=== PATIENT | male | born 1980 | race African-American/Black ===

== ENCOUNTER 2016-11-11 12:30 | Emergency (ER) | payer SELFPAY ==
[~2016-11-11] VITALS: Ht 185.4 cm; Wt 141.0 kg
[~2016-11-11 12:30] MED LIST: AMLO5TAB22 PO; ANTI2TAB PO; BENT20TA PO; COZA100T PO; FLUO40CA PO; GABA600T PO; HYDR-2768 PO; ISOS20TA38 PO; LORTA5 PO
[2016-11-11 12:32] VITALS: BP 195/103; PULSE 100; RESP 18; TEMP 98.4; O2SAT 97
[2016-11-11 12:33] VITALS: BP 195/103; PULSE 103; RESP 17; TEMP 98.1; O2SAT 98
[2016-11-11 12:42] VITALS: BP 193/94
[2016-11-11] MEDS ORDERED: SODIUM CHLORIDE 0.9% FLUSH 5 ML FLUSH IVF PRN (13:15)
--- NOTE | 2016-11-11 13:23 | PD ---
HPI Chief Complaint: Musculoskeletal Complaint Time Seen by Provider: 13:19 Travel History International Travel<30 days: No Contact w/Intl Traveler<30days: No Traveled to known affect area: No History of Present Illness HPI Patient is a 36-year-old male presenting to the emergency room for evaluation right knee pain. Patient states he woke up this morning with unable to ambulate. He has a history of surgery on that knee however he noticed a deformity to the lateral aspect that seems worse than it normally does. Additionally patient's blood pressure was elevated, he states that he is supposed to be on blood pressure medications but has not been for the last 2 months approximately. Patient was [facility] and was on medications then. He reports being on amlodipine, HCTZ, isosorbide, clonidine. His girlfriend endorses that he has had bad headaches lately and gets short of breath with exertion. He denies any peripheral edema or chest pain currently. Patient does endorse daily tobacco use as well as marijuana use. PFSH Past Medical History Depression: Yes Cardiovascular Problems: Yes (CARDIOMYOPATHY) Diminished Hearing: No Hypertension: Yes Musculoskeletal: Yes Immunizations Current: No Past Surgical History Other Surgery: Yes (knee surgery) Social History Alcohol Use: No Tobacco Use: Yes (5-6 cig/day) Substance Use: Yes (MARIJUANA ) Allergies-Medications (Allergen,Severity, Reaction): Coded Allergies: Lisinopril (Verified Allergy, Severe, SWELLING, 11/11/16) Reported Meds & Prescriptions Reported Meds & Active Scripts Active No Active Prescriptions or Reported Medications Review of Systems Except as stated in HPI: all other systems reviewed are Neg HENT: Positive: Headaches, No: Lightheadedness Cardiovascular: Positive: Dyspnea on exertion, No: Chest Pain or Discomfort, Tachycardia, Diaphoresis Respiratory: No: Cough, Shortness of Breath, Wheezing Musculoskeletal: Positive: Myalgias, Arthralgias, Pain Physical Exam Narrative GENERAL: Overweight, well-developed, alert gentleman. Resting comfortably in no acute distress. SKIN: Warm and dry. HEAD: Atraumatic. Normocephalic. EYES: Pupils equal and round. No scleral icterus. No injection or drainage. ENT: No nasal bleeding or discharge. Mucous membranes pink and moist. NECK: Trachea midline. No JVD. CARDIOVASCULAR: Regular rate and rhythm. No murmur appreciated. RESPIRATORY: No accessory muscle use. Clear to auscultation. Breath sounds equal bilaterally. GASTROINTESTINAL: Abdomen soft, non-tender, nondistended. Hepatic and splenic margins not palpable. MUSCULOSKELETAL: Lateral aspect of right knee has a bony prominence. No clubbing. No cyanosis. No edema. Positive pedal pulses. NEUROLOGICAL: Awake and alert. No obvious cranial nerve deficits. Motor grossly within normal limits. Normal speech. PSYCHIATRIC: Appropriate mood and affect; insight and judgment normal. Data Data Last Documented VS Vital Signs Date Time Temp Pulse Resp B/P Pulse Ox O2 Delivery O2 Flow Rate FiO2 11/11/16 15:35 97.8 76 17 150/77 99 11/11/16 14:59 Room Air Orders Knee, Complete (4vws) (11/11/16 ) Electrocardiogram (11/11/16 13:13) Ckmb (Isoenzyme) Profile (11/11/16 13:13) Complete Blood Count With Diff (11/11/16 13:13) Comprehensive Metabolic Panel (11/11/16 13:13) Magnesium (Mg) (11/11/16 13:13) Prothrombin Time / Inr (Pt) (11/11/16 13:13) Act Partial Throm Time (Ptt) (11/11/16 13:13) Troponin I (11/11/16 13:13) Chest, Single Ap (11/11/16 13:13) Sodium Chloride 0.9% Flush (Ns Flush) (11/11/16 13:15) CKMB (11/11/16 13:45) CKMB% (11/11/16 13:45) Acetamin-Hydrocod 325-5 Mg ([place] 5-325 (11/11/16 15:15) Labs Laboratory Tests Test 11/11/16 13:45 White Blood Count 8.8 TH/MM3 Red Blood Count 4.80 MIL/MM3 Hemoglobin 13.3 GM/DL Hematocrit 39.5 % Mean Corpuscular Volume 82.2 FL Mean Corpuscular Hemoglobin 27.7 PG Mean Corpuscular Hemoglobin 33.7 % Concent Red Cell Distribution Width 13.3 % Platelet Count 330 TH/MM3 Mean Platelet Volume 7.7 FL Neutrophils (%) (Auto) 67.3 % Lymphocytes (%) (Auto) 18.5 % Monocytes (%) (Auto) 11.5 % Eosinophils (%) (Auto) 2.3 % Basophils (%) (Auto) 0.4 % Neutrophils # (Auto) 5.9 TH/MM3 Lymphocytes # (Auto) 1.6 TH/MM3 Monocytes # (Auto) 1.0 TH/MM3 Eosinophils # (Auto) 0.2 TH/MM3 Basophils # (Auto) 0.0 TH/MM3 CBC Comment DIFF FINAL Differential Comment Prothrombin Time 9.9 SEC Prothromb Time International 0.9 RATIO Ratio Activated Partial 26.4 SEC Thromboplast Time Sodium Level 140 MEQ/L Potassium Level 3.9 MEQ/L Chloride Level 107 MEQ/L Carbon Dioxide Level 26.6 MEQ/L Anion Gap 6 MEQ/L Blood Urea Nitrogen 13 MG/DL Creatinine 1.57 MG/DL Estimat Glomerular Filtration 61 ML/MIN Rate Random Glucose 84 MG/DL Calcium Level 8.5 MG/DL Magnesium Level 2.0 MG/DL Total Bilirubin 0.3 MG/DL Aspartate Amino Transf 13 U/L (AST/SGOT) Alanine Aminotransferase 22 U/L (ALT/SGPT) Alkaline Phosphatase 61 U/L Total Creatine Kinase 251 U/L Creatine Kinase MB 2.7 NG/ML Troponin I 0.04 NG/ML Total Protein 7.3 GM/DL Albumin 3.5 GM/DL MDM Medical Decision Making Medical Screen Exam Complete: Yes Emergency Medical Condition: Yes Interpretation(s) Vital Signs Date Time Temp Pulse Resp B/P Pulse Ox O2 Delivery O2 Flow Rate FiO2 11/11/16 12:42 193/94 11/11/16 12:33 98.1 103 17 195/103 98 Differential Diagnosis nstemi versus hypertensive urgency versus fracture versus strain versus sprain versus other Narrative Course Patient is a 36-year-old male who presented to the emergency department initially for evaluation of right knee pain however it was noted that his blood pressure was elevated, he has a diagnosis of hypertension however has been off of medications for several months. He is also been getting short of breath with exertion and has been having bad headaches. Labs and imaging ordered and pending. Workup initiated in triage, care patient will be transferred to a provider when a medical bed is available. Scripts No Active Prescriptions or Reported Meds Milagros Frey Nov 11, 2016 13:23
--- NOTE | 2016-11-11 14:05 | RADRPT ---
EXAM DATE/TIME: 11/11/2016 13:38 [facility] COMPARISON: CHEST SINGLE AP, November 04, 2015, 3:18. INDICATIONS : Patient felt pop in knee this morning and then pain started where pin was placed in previous surgery. MEDICAL HISTORY : None. SURGICAL HISTORY : None. ENCOUNTER: Initial ACUITY: 1 day PAIN SCORE: 0/10 LOCATION: chest FINDINGS: A single view of the chest demonstrates the lungs to be symmetrically aerated without evidence of mas s, infiltrate or effusion. The cardiomediastinal contours are unremarkable. Osseous structures are intact. CONCLUSION: No acute disease. Haresh Munoz MD on November 11, 2016 at 14:03 Board Certified Radiologist. This report was verified electronically.
--- NOTE | 2016-11-11 14:07 | RADRPT ---
EXAM DATE/TIME: 11/11/2016 13:33 [facility] COMPARISON: No previous studies available for comparison. INDICATIONS : Patient felt pop in knee this morning. He started to have pain where we had a pin put in his knee pre viously. MEDICAL HISTORY : None. SURGICAL HISTORY : Knee surgery ENCOUNTER: Initial ACUITY: 1 day PAIN SCORE: 8/10 LOCATION: Right knee FINDINGS: The knee joint is normally aligned. No acute fracture is seen. There is chronic remodeling at the p roximal fibula. There is a single screw through the proximal fibula. The patient does appear to hav e a focal bone lesion at the posterolateral distal femur likely related to an enchondroma. No effusi on is seen. CONCLUSION: No acute abnormality is seen. There is chronic change described above. Haresh Munoz MD on November 11, 2016 at 14:02 Board Certified Radiologist. This report was verified electronically.
[2016-11-11 14:16] LABS: AUTOMATED NEUTROPHIL # 5.9 TH/MM3 (1.8-7.7); BASOPHIL % 0.4 % (0.0-2.0); EOSINOPHIL # 0.2 TH/MM3 (0-0.4); EOSINOPHIL % 2.3 % (0.0-4.0); HEMATOCRIT 39.5 % (39.0-51.0); HEMO FLAGS DIFF FINAL; LYMPH % 18.5 % (9.0-44.0); LYMPHOCYTE # 1.6 TH/MM3 (1.0-4.8); MEAN CELL VOLUME 82.2 FL (80.0-100.0); MEAN CORPUSCULAR HEMOGLOBIN 27.7 PG (27.0-34.0); MEAN CORPUSCULAR HGB CONC 33.7 % (32.0-36.0); MONO % 11.5 % (0.0-8.0); NEUT % 67.3 % (16.0-70.0); PLATELET COUNT 330 TH/MM3 (150-450); RED CELL DISTRIBUTION WIDTH 13.3 % (11.6-17.2); WHITE BLOOD COUNT 8.8 TH/MM3 (4.0-11.0)
[2016-11-11 14:29] LABS: APTT (PATIENT) 26.4 SEC (24.3-30.1); INTERNATIONAL NORMALIZED RATIO 0.9 RATIO; PROTHROMBIN TIME - PATIENT 9.9 SEC (9.8-11.6)
[2016-11-11 14:31] LABS: ALT (GPT) 22 U/L (12-78); ANION GAP 6 MEQ/L (5-15); AST (GOT) 13 U/L (15-37); BICARBONATE 26.6 MEQ/L (21.0-32.0); BLOOD UREA NITROGEN 13 MG/DL (7-18); CHLORIDE 107 MEQ/L (98-107); GLOMERULAR FILTRATION RATE 61 ML/MIN (>89); POTASSIUM 3.9 MEQ/L (3.5-5.1); SODIUM (NA) 140 MEQ/L (136-145)
[2016-11-11 14:35] LABS: ALKALINE PHOSPHATASE 61 U/L (45-117); CREATINE KINASE 251 U/L (39-308); TOTAL BILIRUBIN ADULT 0.3 MG/DL (0.2-1.0)
[2016-11-11 14:47] LABS: CKMB 2.7 NG/ML (0.5-3.6)
[2016-11-11 14:59] VITALS: BP 161/89; PULSE 84; RESP 17; TEMP 97.8; O2SAT 98
--- NOTE | 2016-11-11 15:06 | PD ---
HPI Chief Complaint: Musculoskeletal Complaint Time Seen by Provider: 14:56 Travel History International Travel<30 days: No Contact w/Intl Traveler<30days: No Traveled to known affect area: No History of Present Illness HPI 36-year-old male came to the emergency room with history of right sided knee pain from the lateral aspect. Patient had surgery done on that knee in the past in [place]. However this morning he woke up and he noticed a swelling there. He was seen by the provider in triage initially and workup was initiated including an x-ray. The time he came into the room workup was done and x-ray report was back. Everything was within normal limits. Patient does have some renal insufficiency. No acute issues with the knee joint. Patient is able to flex his knee and extended. He is able to walk but with a limp. PFSH Past Medical History Narrative Medical List of his past medical, surgical, social and family history is reviewed from the nursing note. Depression: Yes Cardiovascular Problems: Yes (CARDIOMYOPATHY) Diminished Hearing: No Hypertension: Yes Musculoskeletal: Yes Immunizations Current: No Past Surgical History Other Surgery: Yes (knee surgery) Social History Alcohol Use: No Tobacco Use: Yes (5-6 cig/day) Substance Use: Yes (MARIJUANA ) Allergies-Medications (Allergen,Severity, Reaction): Coded Allergies: Lisinopril (Verified Allergy, Severe, SWELLING, 11/11/16) Comments List of his allergies reviewed from the nursing note. Reported Meds & Prescriptions Reported Meds & Active Scripts Active No Active Prescriptions or Reported Medications Narrative Medication List of his home medications reviewed from the nursing note. Review of Systems Except as stated in HPI: all other systems reviewed are Neg Physical Exam Narrative GENERAL: Awake, alert, morbidly obese, moderate distress SKIN: Warm and dry. HEAD: Atraumatic. Normocephalic. EYES: Pupils equal and round. No scleral icterus. No injection or drainage. ENT: No nasal bleeding or discharge. Mucous membranes pink and moist. NECK: Trachea midline. No JVD. CARDIOVASCULAR: Regular rate and rhythm. No murmur appreciated. RESPIRATORY: No accessory muscle use. Clear to auscultation. Breath sounds equal bilaterally. GASTROINTESTINAL: Abdomen soft, non-tender, nondistended. Hepatic and splenic margins not palpable. MUSCULOSKELETAL: No obvious deformities. No clubbing. No cyanosis. No edema. NEUROLOGICAL: Awake and alert. No obvious cranial nerve deficits. Motor grossly within normal limits. Normal speech. PSYCHIATRIC: Appropriate mood and affect; insight and judgment normal. Data Data Last Documented VS Vital Signs Date Time Temp Pulse Resp B/P Pulse Ox O2 Delivery O2 Flow Rate FiO2 11/11/16 15:35 97.8 76 17 150/77 99 11/11/16 14:59 Room Air Orders Knee, Complete (4vws) (11/11/16 ) Electrocardiogram (11/11/16 13:13) Ckmb (Isoenzyme) Profile (11/11/16 13:13) Complete Blood Count With Diff (11/11/16 13:13) Comprehensive Metabolic Panel (11/11/16 13:13) Magnesium (Mg) (11/11/16 13:13) Prothrombin Time / Inr (Pt) (11/11/16 13:13) Act Partial Throm Time (Ptt) (11/11/16 13:13) Troponin I (11/11/16 13:13) Chest, Single Ap (11/11/16 13:13) Sodium Chloride 0.9% Flush (Ns Flush) (11/11/16 13:15) CKMB (11/11/16 13:45) CKMB% (11/11/16 13:45) Acetamin-Hydrocod 325-5 Mg ([place] 5-325 (11/11/16 15:15) Labs Laboratory Tests Test 11/11/16 13:45 White Blood Count 8.8 TH/MM3 Red Blood Count 4.80 MIL/MM3 Hemoglobin 13.3 GM/DL Hematocrit 39.5 % Mean Corpuscular Volume 82.2 FL Mean Corpuscular Hemoglobin 27.7 PG Mean Corpuscular Hemoglobin 33.7 % Concent Red Cell Distribution Width 13.3 % Platelet Count 330 TH/MM3 Mean Platelet Volume 7.7 FL Neutrophils (%) (Auto) 67.3 % Lymphocytes (%) (Auto) 18.5 % Monocytes (%) (Auto) 11.5 % Eosinophils (%) (Auto) 2.3 % Basophils (%) (Auto) 0.4 % Neutrophils # (Auto) 5.9 TH/MM3 Lymphocytes # (Auto) 1.6 TH/MM3 Monocytes # (Auto) 1.0 TH/MM3 Eosinophils # (Auto) 0.2 TH/MM3 Basophils # (Auto) 0.0 TH/MM3 CBC Comment DIFF FINAL Differential Comment Prothrombin Time 9.9 SEC Prothromb Time International 0.9 RATIO Ratio Activated Partial 26.4 SEC Thromboplast Time Sodium Level 140 MEQ/L Potassium Level 3.9 MEQ/L Chloride Level 107 MEQ/L Carbon Dioxide Level 26.6 MEQ/L Anion Gap 6 MEQ/L Blood Urea Nitrogen 13 MG/DL Creatinine 1.57 MG/DL Estimat Glomerular Filtration 61 ML/MIN Rate Random Glucose 84 MG/DL Calcium Level 8.5 MG/DL Magnesium Level 2.0 MG/DL Total Bilirubin 0.3 MG/DL Aspartate Amino Transf 13 U/L (AST/SGOT) Alanine Aminotransferase 22 U/L (ALT/SGPT) Alkaline Phosphatase 61 U/L Total Creatine Kinase 251 U/L Creatine Kinase MB 2.7 NG/ML Troponin I 0.04 NG/ML Total Protein 7.3 GM/DL Albumin 3.5 GM/DL [facility] Medical Decision Making Medical Screen Exam Complete: Yes Emergency Medical Condition: Yes Medical Record Reviewed: Yes Interpretation(s) Twelve-lead EKG was reviewed by me. Normal sinus rhythm, normal axis, LVH. Heart rate of 80 minute. Differential Diagnosis Knee pain Narrative Course 3:02 PM blood test and x-ray results are back. They're within normal limit. I' ll discharge him home with crutches and follow-up with orthopedic. 3:30 PM Patient was very upset since no pain medication prescriptions were given. He did not want to get any crutches and left screaming threatening to make phone calls. Procedures EKG Prior to Arrival: No Diagnosis Primary Impression: Knee pain, right Qualified Code: M25.561 - Acute pain of right knee Additional Impression: Renal insufficiency Referrals: Demarco Acosta Jr., MD 3 days Additional Instructions: Is follow-up with the orthopedist whose name and number been given to you. Use crutches for comfort. Take Motrin/Tylenol for the pain. Apply ice on the area. Med/Other Pt SpecificInfo: No Change to Meds Scripts No Active Prescriptions or Reported Meds Disposition: 01 DISCHARGE HOME Condition: Stable Dominga Graves MD Nov 11, 2016 15:06
[2016-11-11] MEDS ORDERED: ACETAMINOPHEN/HYDROcodone 325 MG/5 MG TAB PO ONE (15:15)
[2016-11-11 15:35] VITALS: BP 150/77; TEMP 97.8
--- NOTE | 2016-11-13 07:40 | EKG ---
Date Performed: 11/11/2016 Time Performed: 13:42:05 PTAGE: 36 years EKG: Sinus rhythm POSSIBLE LEFT VENTRICULAR HYPERTROPHY Compared to the previous tracing J point elevation in the late precordial leads is more prominent and likely represents an early repolarization but consider acute infarct in the proper clinical setting. Clinical correlation is recommended ABNORMAL ECG PREVIOUS TRACING : 11/04/2015 07.02 DOCTOR: Audi Armstrong Interpretating Date/Time 11/13/2016 07:39:22
== END 2016-11-11 15:35 | disposition home or self-care (01) ==
LOC: NEPA 12:30
DX: M25.561 Pain in right knee (principal); N28.9 Disorder of kidney and ureter, unspecified; R94.31 Abnormal electrocardiogram [ECG] [EKG]; I10 Essential (primary) hypertension; Z72.0 Tobacco use; Z98.890 Other specified postprocedural states; Z86.59 Personal history of other mental and behavioral disorders; Z86.79 Personal history of other diseases of the circulatory system; Z87.39 Personal history of other diseases of the musculoskeletal system and connective tissue
CPT/HCPCS: 71010; 73564; 80053; 82550; 82552; 83735; 84484; 85025; 85610; 85730; 93005